=== PATIENT | female | born 1985 | race Caucasian/White ===

== ENCOUNTER 2023-09-17 11:15 | Emergency (ER) | payer BC, SELFPAY ==
[2023-09-17] VITALS (9 sets, daily range): BP systolic 102–122; BP diastolic 69–86; PULSE 70–93; RESP 16–18; TEMP 36.8–36.9; O2SAT 97–100; BMI 21.9
--- NOTE | 2023-09-17 11:17 | ED_ITS ---
Discharge Plan Disposition Patient Disposition: Home, Self-Care Condition: Good Prescriptions Prescriptions: New dicyclomine 20 mg tablet 20 mg PO BID 10 Days Qty: 20 0RF Probiotic 3 billion cell capsule 3,000 mmu cells PO DAILY 30 Days Qty: 30 0RF Rx Instructions: administer with a meal omeprazole 20 mg capsule,delayed release(DR/EC) 20 mg PO DAILY 28 Days Qty: 28 0RF ondansetron 4 mg tablet,disintegrating 4 mg PO Q8H PRN (Reason: nausea and vomiting) 5 Days Qty: 14 0RF Referrals Follow up/Referrals: Provider,Referral, MD [Primary Care Provider] - See instructions Activity Restrictions/Add. Instructions Additional Instructions/Restrictions: I have written multiple prescriptions for medications to help treat colitis/enteritis that was found on your CT scan. This will likely resolve on its own. Please make sure you drink plenty of liquids in the meantime. Please return with any new or worsening symptoms. Clinical Impressions Clinical Impression: Colitis Instructions Patient Instructions: DI for Acute Abdominal Pain Discharge ED Provider: Cody Norwood Adult HPI General Chief complaint: Abdominal Pain Stated complaint: kidney spasms Time Seen by Provider: 09/17/23 11:17 History of Present Illness HPI narrative: The patient presents with a chief complaint of kidney pain, difficulty emptying their bladder, and back spasms. They report a history of kidney problems since the age of [age], with frequent infections. The current pain began yesterday and is predominantly located on the right side, with occasional pain on the left side. The patient describes a burning sensation throughout their entire torso, both front and back. The patient denies having any kidney stones in the past but confirms that the current spasms feel similar to previous kidney infections. They are not aware of any fevers and have not been on any antibiotics recently. They report feeling nauseous and having a sensation of needing to vomit, but they have not actually vomited. The patient also experiences pain in the front of their stomach area, with burning sensations extending up to their rib cage. The patient has a surgical history of an appendectomy in 2019 and denies any other abdominal surgeries. They report no improvement or worsening of symptoms with any specific actions or positions. The patient confirms that they still have their gallbladder. They deny any bleeding or discharge and are not currently taking any daily medications. Please note that above description of symptoms, in this electronic medical record under categorization of recalled from ER triage doctor by RN are reflective of an initial nursing assessment, however, is not reflective of my full history and physical exam that was personally taken and clarified. Consequentially, this preceding description of symptoms, which may include the patient's categorized chief complaint in the EMR, do not reflect my personal clinical impression, and the ultimate description of history of present illness and patient stated complaints should be deferred to this section of the note. Unless stated otherwise or congruent with this section of the note, additional signs, symptoms, or incongruence should be interpreted as inaccurate with my clinical impression. Related Data Previous Rx's Medication Instructions Recorded dicyclomine 20 mg tablet 20 mg PO BID 10 days #20 tabs 09/17/23 lactobacillus combination no.4 3 3,000 mmu cells PO DAILY 30 days 09/17/23 billion cell capsule (Probiotic) #30 caps omeprazole 20 mg capsule,delayed 20 mg PO DAILY 28 days #28 caps 09/17/23 release ondansetron 4 mg disintegrating 4 mg PO Q8H PRN nausea and 09/17/23 tablet vomiting 5 days #14 tabs Allergies Allergy/AdvReac Type Severity Reaction Status Date / Time Penicillins Allergy Hives Verified 09/17/23 11:54 [facility] Disclaimer: The information contained in this section may have been updated after the patient was seen, as this information can be updated by other users. Social History Smoking Status: Current every day smoker alcohol intake: current current occupational status: other Travel in the last 8 weeks: None ROS Obtained: Yes other As per HPI Physical Exam General General appearance: alert and in no apparent distress Head Head exam: atraumatic and normocephalic Eye Eye exam: Present normal appearance Neck Neck exam: Present normal inspection Chest Chest inspection: Present normal inspection and symmetric chest wall rise Respiratory Respiratory exam: Present normal lung sounds bilaterally; Absent respiratory distress Cardiovascular Cardiovascular exam: Present regular rate and normal rhythm Abdominal Exam Abdominal exam: Present soft Abdominal tenderness: Present RLQ Neurological Exam Neurological exam: Present alert and oriented X3 Psychiatric Psychiatric exam: Present normal affect and normal mood Skin Skin exam: Present warm and dry Medical Decision Making Medical Records Medical records reviewed: Yes I reviewed the patient's medical records. Chris Inquiry Pt receiving controlled substance: No Vital Signs: 09/17/23 11:17 09/17/23 11:23 09/17/23 11:30 Temperature 98.3 F Temperature Source Oral Pulse Rate 88 88 Pulse Rate [Left] 93 H Respiratory Rate 18 Blood Pressure 122/86 116/80 Blood Pressure [Right Arm] 122/86 Blood Pressure Mean 91 95 Blood Pressure Mean [Right Arm] 98 Blood Pressure Source Blood Pressure Source [Right Arm] Automatic Cuff Blood Pressure Position Blood Pressure Position [Right Arm] Sitting 02 Sat by Pulse Oximetry 98 99 98 Oxygen Delivery Method Room Air 09/17/23 12:23 09/17/23 12:31 09/17/23 13:00 Temperature Temperature Source Pulse Rate 82 72 74 Pulse Rate [Left] Respiratory Rate Blood Pressure 102/69 L 105/73 L 102/70 L Blood Pressure [Right Arm] Blood Pressure Mean 76 Blood Pressure Mean [Right Arm] Blood Pressure Source Blood Pressure Source [Right Arm] Blood Pressure Position Blood Pressure Position [Right Arm] 02 Sat by Pulse Oximetry 97 98 97 Oxygen Delivery Method Room Air Room Air 09/17/23 13:31 09/17/23 14:00 09/17/23 15:21 Temperature 98.4 F Temperature Source Oral Pulse Rate 70 93 H 87 Pulse Rate [Left] Respiratory Rate 16 Blood Pressure 103/77 L 103/77 L 107/69 L Blood Pressure [Right Arm] Blood Pressure Mean Blood Pressure Mean [Right Arm] Blood Pressure Source Automatic Cuff Blood Pressure Source [Right Arm] Blood Pressure Position Sitting Blood Pressure Position [Right Arm] 02 Sat by Pulse Oximetry 99 100 Oxygen Delivery Method Room Air Room Air Room Air Lab Data Lab Results 09/17/23 11:19: Urine Color Yellow, Urine Appearance Clear, Urine pH 7.0, Ur Specific [place] 1.025, Urine Protein Negative, Urine Glucose (UA) Negative, Urine Ketones Negative, Urine Blood Negative, Urine Nitrate Negative, Urine Bilirubin Negative, Urine Urobilinogen 4.0, Ur Leukocyte Esterase Negative, Urine RBC None, Urine WBC Occasional, Ur Squamous Epith Cells 5-10, Urine Bacteria 1+, Urine Mucus 3+ 09/17/23 11:38: WBC 8.2, RBC 4.51, Hgb 14.8, Hct 46.9, MCV 103.9 H, MCH 32.8 H, MCHC 31.6 L, RDW 13.3, Plt Count 286, MPV 8.2, Neut % (Auto) 78.4, Lymph % (Auto) 13.9, Thomas % (Auto) 5.1, Eos % (Auto) 1.2, Baso % (Auto) 1.3, Neut # (Auto) 6.5, Lymph # (Auto) 1.1, Thomas # (Auto) 0.4, Eos # (Auto) 0.1, Baso # (Auto) 0.1, Sodium 139, Potassium 4.0, Chloride 106, Carbon Dioxide 28, Anion Gap 9.0, BUN 6 L, Creatinine 0.60, Estimated Creat Clear 110, Estimated GFR 112, Est GFR ( Amer) 136, Glucose 96, Calcium 9.1, Total Bilirubin 0.7, AST 26, ALT 15, Alkaline Phosphatase 65, Total Protein 7.0, Albumin 4.3, Globulin 2.7, Albumin/Globulin Ratio 1.6, Serum HCG, Qual Negative 09/17/23 11:38 09/17/23 11:38 Orders (Tests/Meds): ED MEDICATIONS Discontinued Medications Generic Name Dose Route Start Last Admin Trade Name Freq PRN Reason Stop Dose Admin Iopamidol 75 ml 09/17/23 12:13 09/17/23 12:14 Iopamidol-370 (76%);100ml Bottle IV 09/17/23 12:14 75 ml ONCE ONE Administration Sodium Chloride 10 ml 09/17/23 12:13 09/17/23 12:14 Sodium Chloride 0.9% 10ml Syr (Rad Only) IV 09/17/23 12:14 10 ml ONCE ONE Administration ORDERS Category Date Time Status CT abdomen pelvis w con Stat Cat Scan 09/17/23 11:53 Completed CBC w/Auto Diff [Complete Blood Count Auto Diff] Stat Lab 09/17/23 11:38 Completed CMP [Comprehensive Metabolic Panel] Stat Lab 09/17/23 11:38 Completed HCG Qualitative, Serum Stat Lab 09/17/23 11:38 Completed Urinalysis and Microscopic Stat Lab 09/17/23 11:19 Completed Urine Culture Stat Micro 09/17/23 11:19 Results Medical Decision Narrative: Patient with history and exam per above presenting for evaluation of right lower quadrant abdominal pain. Diagnoses considered include Appendicitis, urolithiasis, pyelonephritis, diverticulitis, ruptured ovarian cyst, No convincing historical features to suggest ovarian torsion or PID. ED workup and treatment included: ED MEDICATIONS Discontinued Medications Generic Name Dose Route Start Last Admin Trade Name Freq PRN Reason Stop Dose Admin Iopamidol 75 ml 09/17/23 12:13 09/17/23 12:14 Iopamidol-370 (76%);100ml Bottle IV 09/17/23 12:14 75 ml ONCE ONE Administration Sodium Chloride 10 ml 09/17/23 12:13 09/17/23 12:14 Sodium Chloride 0.9% 10ml Syr (Rad Only) IV 09/17/23 12:14 10 ml ONCE ONE Administration ORDERS Category Date Time Status CT abdomen pelvis w con Stat Cat Scan 09/17/23 11:53 Completed CBC w/Auto Diff [Complete Blood Count Auto Diff] Stat Lab 09/17/23 11:38 Completed CMP [Comprehensive Metabolic Panel] Stat Lab 09/17/23 11:38 Completed HCG Qualitative, Serum Stat Lab 09/17/23 11:38 Completed Urinalysis and Microscopic Stat Lab 09/17/23 11:19 Completed Urine Culture Stat Micro 09/17/23 11:19 Results Labs were independently interpreted by me, significant for no acute findings Imaging was independently visualized and interpreted by me, significant for findings consistent with enteritis Please refer to radiology report for full details. My clinical impression at this time is most consistent with enteritis. Of note, I was notified by nursing staff that patient had initially expressed reluctance to provide a response and was tearful when screened for Feeling unsafe at home. I inquired on 2 occasions. If she had any additional questions or concerns or ways I could help her, she declined. No clinical evidence of abuse or neglect at this time on exam. I discussed my clinical impression with patient and answered all questions. At this time, the evidence for any other entities in the differential is insufficient to warrant any further testing or ED observation. This was explained to the patient. The patient was advised that persistent or worsening symptoms require further evaluation. I confirmed the patient's understanding of this discussion. Critical Care Critical Care Time Critical Care Time: No
[2023-09-17 11:25] LABS: Microscopic, Urine URINE MICROSCOPIC (MICROSCOPIC)
[2023-09-17 11:27] LABS: Appearance,Urine CLEAR (Clear); Bilirubin,Urine Negative (Negative); Blood, Urine Negative (Negative); Color,Urine YELLOW (Yellow); Glucose,Urine (UA) Negative (Negative); Ketones,Urine Negative (Negative); Leukocyte Esterase,Urine Negative (Negative); Nitrate,Urine Negative (Negative); Protein,Urine Negative (Negative); Specific Gravity, Urine 1.025 (1.005-1.030)
--- NOTE | 2023-09-17 11:45 | PC.NURSE ---
DR SEARS AT BEDSIDE
[2023-09-17 11:47] LABS: Basophils # 0.1 K/mm3 (0-0.2); Basophils % 1.3 % (0.1-2.0); Eosinophils # 0.1 K/mm3 (0.0-0.4); Eosinophils % 1.2 % (0.1-12.0); Hematocrit 46.9 % (37.0-47.0); Hemoglobin 14.8 g/dL (12.2-16.2); Lymphocytes # 1.1 K/mm3 (0.7-4.5); Lymphocytes % 13.9 % (10-50); Mean Corpuscular HGB Conc 31.6 g/dL (31.8-35.4); Mean Corpuscular Hemoglobin 32.8 pg (27.0-31.2); Mean Corpuscular Volume 103.9 fl (81-99); Mean Platelet Volume 8.2 fl (7.4-10.4); Monocytes # 0.4 K/mm3 (0.1-1.0); Monocytes % 5.1 % (1.7-9.3); Neutrophils # 6.5 K/mm3 (1.8-7.8); Neutrophils % 78.4 % (37.0-80.0); Platelet Count 286 K/mm3 (142-424); Red Blood Count 4.51 M/mm3 (4.20-5.40); Red Cell Distribution Width 13.3 % (11.5-17.5); White Blood Count 8.2 K/mm3 (4.8-10.8)
[2023-09-17 11:49] LABS: Chloride 106 mmol/L (98-107); Sodium 139 mmol/L (136-145)
[2023-09-17 11:52] LABS: Alanine Aminotransferase 15 U/L (12-78); Albumin Level 4.3 g/dl (3.5-5.0); Albumin/Globulin Ratio 1.6 (1.1-1.8); Alkaline Phosphatase 65 U/L (38-126); Aspartate Amino Transferase 26 U/L (14-36); Bilirubin,Total 0.7 mg/dl (0.2-1.3); Blood Urea Nitrogen 6 mg/dl (7-17); Calcium 9.1 mg/dl (8.4-10.2); Carbon Dioxide 28 mmol/L (22.0-30.0); Creatinine Clearance Estimated 110 mL/min (50-200); Estimated Glomerular Filt Rate 112 ml/min (>60); GFR (African American) 136 ML/MIN (>60); Globulin 2.7 g/dL (1.3-3.2); Glucose 96 mg/dl (74-100)
[2023-09-17 11:53] LABS: Bacteria,Urine 1+ /lpf; Mucus,Urine 3+ /lpf; WBC,Urine Occasional #/hpf (0-3)
--- NOTE | 2023-09-17 11:53 | CT_ITS ---
FINAL REPORT TECHNIQUE: Thin section axial images are obtained through the abdomen and pelvis after intravenous contrast. Reconstruction images were obtained from the axial data. Exam was performed using dose reduction techniques. CLINICAL HISTORY: RLQ abdominal pain, dysuria COMPARISON: None FINDINGS: LUNG BASES: Lung bases are clear. A calcified granuloma is present in the left lower lobe. Heart size is normal. LIVER: There are tiny hypodense lesions in the anterior left lobe of the liver and the right lobe of the liver, favor cysts. No focal lesion. GALLBLADDER/BILIARY SYSTEM: Gallbladder is present. No gallstones. No biliary dilatation. SPLEEN: Unremarkable. PANCREAS: Unremarkable. ADRENALS: Unremarkable. SYSTEM: No hydronephrosis, renal mass, or renal stone. Unremarkable urinary bladder. There is a right ovarian cyst measuring 2.6 cm in size, likely a functional cyst. GI TRACT: There are fluid-filled loops of small bowel, without definite small bowel obstruction. The appendix is not visualized, and may have been resected. There is long segment wall thickening of the distal colon most consistent with colitis. LYMPH NODES/RETROPERITONEUM/MESENTERY: No lymphadenopathy. No abdominal aortic aneurysm. OTHER: No ascites. Remaining soft tissues without acute abnormality. BONES: No acute osseous abnormality. IMPRESSION: Long segment wall thickening of the distal colon, most compatible with colitis. Fluid-filled loops of small bowel, without small bowel obstruction, may represent enteritis. Reviewed, Interpreted and Dictated by Jeanne Valladares MD Transcribed by Aidee Chopra Authenticated and [facility]
[2023-09-17 11:54] LABS: HCG Qualitative, Serum Negative (Negative)
--- NOTE | 2023-09-17 12:05 | PC.NURSE ---
PT TO CT
[2023-09-17] MEDS: IOPAMIDOL-370 (76%);100ML BOTTLE 75 ML IV (12:14)
[2023-09-17] MEDS: SODIUM CHLORIDE 0.9% 10ML SYR (RAD ONLY) 10 ML IV (12:14)
--- NOTE | 2023-09-17 12:23 | PC.NURSE ---
ROUNDED ON PT, NO NEEDS AT THIS TIME. CALL LIGHT WITHIN REACH
--- NOTE | 2023-09-17 13:01 | PC.NURSE ---
CONTACTED RADIOLOGY TO CHECK ON CT READS
--- NOTE | 2023-09-22 14:39 | PC.NURSE ---
pt contacted after reviewing her urine culture. PT was called in macrobid per to pt pharmacy
== END 2023-09-17 15:24 | disposition home or self-care (01) ==
PROVIDERS: Emergency Provider Emergency Medicine
DX: K52.9 Noninfective gastroenteritis and colitis, unspecified (principal); B96.89 Other specified bacterial agents as the cause of diseases classified elsewhere; R39.198 Other difficulties with micturition; M62.830 Muscle spasm of back; F17.210 Nicotine dependence, cigarettes, uncomplicated
CPT/HCPCS: 74177; 80053; 81001; 84703; 85025; 87086; 87088; 87186; 99284; Q9967